=== PATIENT | female | born 1950 | race Caucasian/White ===

== ENCOUNTER → 2016-05-06 | Outpatient (REF) | payer BC | LOC: M SFHCLERA 09:51 | PROVIDERS: ATTEND Physician Assistant | DX: J02.9 Acute pharyngitis, unspecified (principal) ==

== ENCOUNTER 2019-04-24 14:58 | Inpatient (IN) | payer BC, MEDICARE ==
[~2019-04-24] VITALS: Ht 154.9 cm; Wt 56.4 kg
[2019-04-24] MEDS ORDERED: ATOR40TA75 PO (15:43)
[2019-04-24] MEDS ORDERED: ESTR62CR PV (15:43)
[2019-04-24] MEDS ORDERED: BUPR300T34 PO (15:43)
[2019-04-24] MEDS ORDERED: ATEN50TA2 PO (15:43)
[2019-04-24] MEDS ORDERED: NIFE30TA7 PO (15:43)
[2019-04-24] MEDS ORDERED: IPRATROPIUM 0.5MG/ALBUTEROL 2.5MG INH SOL UD 3ML (DUONEB)(J7620) NEB ONE (16:15)
[2019-04-24] MEDS ORDERED: NS 1,000 ML IV ONE (16:15)
[2019-04-24 16:30] LABS: HEMATOCRIT 40.9 % (36.0-47.0); HEMOGLOBIN 13.3 g/dl (12.0-15.5); MEAN CORPUSCULAR HEMOGLOBIN 28.7 pg (27.0-33.0); MEAN CORPUSCULAR HGB CONC 32.5 g/dl (32.0-36.5); MEAN CORPUSCULAR VOLUME 88.1 fl (80.0-96.0); PLATELET COUNT, AUTOMATED 332 10^3/uL (150-450); RED BLOOD COUNT 4.64 10^6/uL (4.00-5.40); WHITE BLOOD COUNT 16.3 10^3/uL (4.0-10.0)
[2019-04-24 16:42] LABS: BLOOD UREA NITROGEN 19 MG/DL (7-18); CALCIUM LEVEL 8.7 MG/DL (8.8-10.2); CARBON DIOXIDE LEVEL 26 MEQ/L (21-32); CHLORIDE LEVEL 98 MEQ/L (98-107); CREATININE FOR GFR 0.81 MG/DL (0.55-1.30); GLOMERULAR FILTRATION RATE > 60.0 (>45); GLUCOSE, FASTING 119 MG/DL (70-100); SODIUM LEVEL 135 MEQ/L (136-145)
[2019-04-24 16:52] LABS: INFLUENZA A AMPLIFICATION NEGATIVE (NEGATIVE); INFLUENZA B AMPLIFICATION POSITIVE (NEGATIVE)
[2019-04-24 16:58] LABS: ANISOCYTOSIS 1+; ATYPICAL LYMPH 1 % (0-5); LYMPHOCYTES 2 % (16-44); MONOCYTES 4 % (0-5); NEUTROPHILS 89 % (28-66)
[2019-04-24 17:04] LABS: HYPOCHROMASIA 1+
[2019-04-24 17:05] LABS: PLATELET ESTIMATE NORMAL (NORMAL)
[2019-04-24] MEDS ORDERED: methylPREDNISolone INJ 125 MG/2 ML VIAL (J2930) IV ONE (17:15)
[2019-04-24] MEDS ORDERED: cefTRIAXone SOD 2 GM in D5W MINI-BAG PLUS 50 ML IV ONE (17:15)
[2019-04-24] MEDS ORDERED: ACETAMINOPHEN TAB 650MG DOSE (2X325MG) PO ONE (18:00)
[2019-04-24] MEDS ORDERED: IBUP200T45 PO (18:21)
[2019-04-24] MEDS ORDERED: CICL1SHA2 TOP (18:21)
[2019-04-24] MEDS ORDERED: diphenhydrAMINE 25 MG CAP PO ONE (21:00)
[2019-04-25] MEDS ORDERED: POTASSIUM CHLORIDE 10 MEQ SR TABLET PO ONE (00:45)
[2019-04-25] MEDS ORDERED: IBUPROFEN 400 MG TAB PO PRN (00:45)
[2019-04-25] MEDS ORDERED: ACETAMINOPHEN TAB 650MG DOSE (2X325MG) PO PRN (00:45)
[2019-04-25] MEDS: atenoloL 25 MG TAB PO SCH ×2 (01:43→21:00)
[2019-04-25 02:00] VITALS: BP 109/58
--- NOTE | 2019-04-25 05:49 | HPEPDOC ---
[facility] Medical History & Physical Date of Admission Apr 25, 2019 Date of Service: Apr 25, 2019 Attending Physician: PANCHITO ROSADO MD History and Physical CHIEF COMPLAINT: Cough and Shortness of breath HISTORY OF PRESENT ILLNESS: Patient is a 68 year old female who presented to the [facility] ER with a complaint of a cough and some shortness of breath over the past 2weeks. She stated that 2 weeks ago she had felt sick and developed a cough. One week after her symptoms developed she went to an Urgent care where she was told she likely had a virus. She stated that since that time she has not felt much better. She denies any fevers or chills. She does admit to some nausea but denies any vomiting. She states that she has a decreased appetite. She does admit to sick contacts and states that her grandson was sick a few weeks ago with URI. Patient stated that she went urgent care a second time and was told to present to the ER. In the ER the patient was vitally stable and afebrile. She did have an elevation in her WBC. A chest x-ray revealed a possible infiltrate however this was not very impressive. The patient received steroids and a dose of Rocephin in the ED. A respiratory panel was ordered and the patient was positive for influenza type B. Hospitalist service was consulted and the patient was admitted. PAST MEDICAL HISTORY: 1. Hypertension 2. Hyperlipidemia PAST SURGICAL HISTORY: 1. Hysterectomy SOCIAL HISTORY: Patient lives at home with her . She is a former smoker and quit 30 years ago. She started at the age of 18 and smoked about 1/2 ppd. She denies any alcohol use. She denies any IV or illicit drug use. FAMILY HISTORY: She denies any family history of CAD ALLERGIES: Please see below. REVIEW OF SYSTEMS: CONSTITUTIONAL: Denies fevers, chills, night sweat. Denies unintentional weight loss. HEENT: Denies dysphagia. Denies pain on swallowing. Denies lymphadenopathy CARDIOVASCULAR: Denies chest pain, palpitations, or feelings of the heart racing RESPIRATORY: Admits to cough. Admits to some sputum production. Admits to some shortness of breath GASTROINTESTINAL: Denies abdominal pain. Denies diarrhea, constipation. Admits to some nausea. Denies vomiting GENITOURINARY: Denies increased frequency. Denies dysuria SKIN: Denies rashes or lesions NEUROLOGICAL: Denies changes in gait or balance PSYCHIATRIC: Denies depression or anxiety ENDOCRINE: Denies heat intolerance or cold intolerance HEMATOLOGIC/LYMPHATIC: Denies easy bruising or bleeding. Denies history of DVT or PE HOME MEDICATIONS: Please see below. PHYSICAL EXAMINATION: VITAL SIGNS: Temperature 97.8, pulse 77, respiratory rate 18, blood pressure 109/58, pulse oximetry 95% on 2L NC GENERAL APPEARANCE: Awake, alert, and oriented. Does not appear to be in any acute distress. Lying comfortably in bed. HEENT: Atraumatic normocephalic. Eyes are nonicteric. Trachea is midline. No lymphadenopathy CARDIOVASCULAR: Normal S1, S2. Regular rate and rhythm. No clicks rubs or murmu rs LUNGS: Clear vesicular breath sounds bilaterally with good respiratory effort. No wheezes, rhonchi, or rales ABDOMEN: Soft, nondistended. Nontender. No rebound tenderness or guarding. Normoactive bowel sounds throughout EXTREMITIES: No edema. Full and equal pulses in bilateral upper and lower extremities NEUROLOGICAL: No focal neurological deficits PSYCHIATRIC: Mood and affect appear appropriate LABORATORY DATA: See below. IMAGING: Clinical: Acute bronchitis. Technique: PA and lateral. Findings: Right basilar and right middle lobe atelectasis/early infiltrate along with subtle linear atelectasis at the left base. Remainder examination appears normal. Impression: Right basilar / middle lobe atelectasis and possible early pneumonia. Subtle linear left basilar atelectasis. Electronically Signed by Kb Santana MD 04/24/2019 02:37 P MICROBIOLOGY: Please see below. ASSESSMENT: Patient is a 68 year old female who presented with 2 weeks of shortness of breath and cough and found to have influenza type B . PLAN: 1. Influenza type B positive -Patient has a URI secondary to influenza. At this point in time there is no indication for antibiotics treatment. Will continue with supportive care. -Duonebs -Titration of O2 to 88-92% -Procalcitonin 2. HTN -Continue home medications including Procardia, Atenolol 3. Hyperlipidemia -Continue Atorvastatin 4. DVT prophylaxis -TEDs and Sequentials Vital Signs Vital Signs Date Time Temp Pulse Resp B/P (MAP) Pulse Ox O2 Delivery O2 Flow Rate FiO2 04/25/19 02:00 97.8 77 18 109/58 (75) 95 Nasal Cannula 2.0 04/24/19 16:14 95 Laboratory Data Labs 24H Laboratory Tests 2 04/24/19 16:06: Nucleated Red Blood Cells % (auto) 0.0, Neutrophils 89H, Band Neutrophils 4, Lymphocytes (Manual) 2L, Monocytes (Manual) 4, Atypical Lymphocytes 1, Hypochromasia 1+, Anisocytosis 1+, Platelet Estimate NORMAL, Anion Gap 11, Glomerular Filtration Rate > 60.0, Calcium Level 8.7L, Influenza Type A (RT-PCR) NEGATIVE, Influenza Type B (RT-PCR) POSITIVEH 04/24/19 16:12: Lactic Acid Level 1.7 CBC/BMP Laboratory Tests 04/24/19 16:06 Microbiology Microbiology 04/24/19 Respiratory Virus Panel (PCR) ([facility]) - Final, Complete 04/24/19 Blood Culture, Received Pending 04/24/19 Blood Culture, Received Pending Home Medications Scheduled Atenolol (Atenolol) 50 Mg Tablet, 25 MG PO QHS Atorvastatin Calcium (Atorvastatin Calcium) 40 Mg Tablet, 60 MG PO DAILY Bupropion HCl (Bupropion Xl) 300 Mg Tab.er.24h, 300 MG PO DAILY Ciclopirox (Ciclopirox) 120 Ml Shampoo, 1 APLCT TOP 3XW Nifedipine (Nifedipine ER) 30 Mg Tab.er.24, 30 MG PO DAILY Scheduled PRN Conjugated Estrogens (Premarin) 30 Gm Cream.appl, 1 GM PV DAILY PRN for VAGINAL DRYNESS Ibuprofen (Ibu-200) 200 Mg Tablet, 400 MG PO Q6H PRN for PAIN Allergies Coded Allergies: Sulfa (Sulfonamide Antibiotics) (Verified Adverse Reaction, Unknown, high blood pressure, 04/24/19) A-FIB/CHADSVASC A-FIB History Current/History of A-Fib/PAF?: No JOE GOOD DO Apr 25, 2019 05:49
[2019-04-25 06:00] VITALS: BP 120/64
[2019-04-25 06:57] LABS: HEMATOCRIT 36.8 % (36.0-47.0); HEMOGLOBIN 12.2 g/dl (12.0-15.5); MEAN CORPUSCULAR HGB CONC 33.2 g/dl (32.0-36.5); MEAN CORPUSCULAR VOLUME 87.6 fl (80.0-96.0); PLATELET COUNT, AUTOMATED 354 10^3/uL (150-450); WHITE BLOOD COUNT 14.5 10^3/uL (4.0-10.0)
[2019-04-25 07:19] LABS: BLOOD UREA NITROGEN 14 MG/DL (7-18); CALCIUM LEVEL 8.9 MG/DL (8.8-10.2); CARBON DIOXIDE LEVEL 27 MEQ/L (21-32); CHLORIDE LEVEL 105 MEQ/L (98-107); CREATININE FOR GFR 0.85 MG/DL (0.55-1.30); GLOMERULAR FILTRATION RATE > 60.0 (>45); GLUCOSE, FASTING 217 MG/DL (70-100); POTASSIUM SERUM 3.6 MEQ/L (3.5-5.1); SODIUM LEVEL 139 MEQ/L (136-145)
[2019-04-25] MEDS: NIFEdipine 30 MG XL TAB PO SCH (09:00)
[2019-04-25] MEDS: ATORVASTATIN 20 MG TAB PO SCH (09:39)
[2019-04-25] MEDS: cefTRIAXone SOD 1 GM in D5W MINI-BAG PLUS 50 ML IV SCH (09:40)
[2019-04-25] MEDS: buPROPion **XL** TABLET 150MG (WELLBUTRIN XL) PO SCH (09:40)
--- NOTE | 2019-04-25 11:03 | IPNPDOC ---
Subjective Date Seen The patient was seen on 04/25/19. Subjective Chief Complaint/HPI Patient is feeling much better, asking when she can be discharged home General: Denies: ROS Unobtainable, Chills, Night Sweats, Fatigue, Malaise, Normal Appetite, Other Symptoms Constitutional: Denies: Chills, Fever, Malaise, Night Sweats, Weakness, Fatigue, Weight Loss, Lethargy, Other Eyes: Denies: Pain, Vision change, Conjunctivae inflammation, Eyelid inflammation, Redness, Other Pulmonary: Denies: Dyspnea, Cough, Pleuritic Chest Pain, Other Symptoms Cardiovascular: Denies: Chest Pain, Palpitations, Orthopnea, Paroxysmal Noc. Dyspnea, Edema, Lt Headedness, Other Symptoms Gastrointestinal: Denies: Nausea, Vomiting, Abdominal Pain, Diarrhea, Constipation, Melena, Hematochezia, Other Symptoms Musculoskeletal: Denies: Neck Pain, Back Pain, Shoulder Pain, Arm Pain, Hand Pain, Leg Pain, Foot Pain, Joint Pain, Muscle Pain, Spasms, Other Symptoms Neurological: Denies: Weakness, Numbness, Incoordination, Change in speech, Confusion, Seizures, Other Symptoms Objective Physical Examination General Exam: Positive: Alert, Cooperative Eye Exam: Positive: PERRLA ENT Exam: Positive: Atraumatic, Mucous membr. moist/pink Neck Exam: Positive: Supple Chest Exam: Positive: Clear to auscultation, Normal air movement Heart Exam: Positive: Rate Normal, Normal S1, Normal S2 Abdomen Exam: Positive: Normal bowel sounds, Soft, Tenderness Extremity Exam: Positive: Normal pulses Neuro Exam: Positive: Strength at 5/5 X4 ext, Sensation Intact, Cranial Nerves 3-12 NL Assessment /Plan Problems (1) Pneumonia Status: Acute Problem Text: Community-acquired pneumonia . Patient's WBC count has decreased to 10.8 . She is afebrile and symptomatically feels better Will continue IV Rocephin and Zithromax Repeat labs in a.m. if continues to improve with the current therapy. She possibly will be discharged home in the morning (2) Flu Problem Text: . Influenza B positive Symptomatic care as patient has symptoms since last 2 weeks (3) HTN (hypertension) Status: Chronic Problem Text: Under control. Continue present meds (4) Hyperlipemia Status: Chronic Problem Text: Continue home meds Plan/VTE VTE Prophylaxis Ordered?: Yes VS, I&O, 24H, Harjinder Vital Signs/I&O Vital Signs Date Time Temp Pulse Resp B/P (MAP) Pulse Ox O2 Delivery O2 Flow Rate FiO2 04/25/19 06:00 98.1 72 16 120/64 (82) 95 Nasal Cannula 2.0 04/24/19 16:14 95 I&O- Last 24 Hours up to 6 AM 04/25/19 05:59 Intake Total 1050 ml Balance 1050 ml Laboratory Data 24H LABS Laboratory Tests 2 04/24/19 16:06: Nucleated Red Blood Cells % (auto) 0.0, Neutrophils 89H, Band Neutrophils 4, Lymphocytes (Manual) 2L, Monocytes (Manual) 4, Atypical Lymphocytes 1, Hypochromasia 1+, Anisocytosis 1+, Platelet Estimate NORMAL, Anion Gap 11, Glomerular Filtration Rate > 60.0, Calcium Level 8.7L, Influenza Type A (RT-PCR) NEGATIVE, Influenza Type B (RT-PCR) POSITIVEH 04/24/19 16:12: Lactic Acid Level 1.7 04/25/19 06:12: Nucleated Red Blood Cells % (auto) 0.0, Anion Gap 7L, Glomerular Filtration Rate > 60.0, Calcium Level 8.9 CBC/BMP Laboratory Tests 04/24/19 16:06 04/25/19 06:12 Microbiology Microbiology 04/24/19 Respiratory Virus Panel (PCR) ([facility]) - Final, Complete 04/24/19 Blood Culture, Received Pending 04/24/19 Blood Culture, Received Pending ARTIE PARSON MD Apr 25, 2019 11:03
[2019-04-25] MEDS: AZITHROMYCIN INJ 500 MG, VIAL MATE ADAPTER 1 EACH in D5W 250 ML IV SCH (11:17)
[2019-04-25 14:00] VITALS: BP 105/58
[2019-04-25 22:00] VITALS: BP 100/62
[2019-04-26 06:00] VITALS: BP 100/60
[2019-04-26 06:02] LABS: BASO # 0.1 10^3/uL (0.0-0.2); BASO % 0.3 % (0.0-1.0); HEMATOCRIT 37.2 % (36.0-47.0); HEMOGLOBIN 12.2 g/dl (12.0-15.5); LYMPH # 1.4 10^3/uL (1.5-5.0); LYMPH % 7.5 % (24.0-44.0); MEAN CORPUSCULAR HEMOGLOBIN 29.2 pg (27.0-33.0); MEAN CORPUSCULAR HGB CONC 32.8 g/dl (32.0-36.5); MONO # 1.1 10^3/uL (0.0-0.8); MONO % 5.8 % (0.0-5.0); NEUTROPHILS % 83.6 % (36.0-66.0); PLATELET COUNT, AUTOMATED 431 10^3/uL (150-450); RED BLOOD COUNT 4.18 10^6/uL (4.00-5.40); WHITE BLOOD COUNT 19.1 10^3/uL (4.0-10.0)
[2019-04-26 06:28] LABS: ALBUMIN 2.4 GM/DL (3.2-5.2); ALT/SGPT 20 U/L (12-78); BILIRUBIN,TOTAL 0.7 MG/DL (0.2-1.0); BLOOD UREA NITROGEN 19 MG/DL (7-18); CALCIUM LEVEL 8.7 MG/DL (8.8-10.2); CARBON DIOXIDE LEVEL 29 MEQ/L (21-32); CHLORIDE LEVEL 105 MEQ/L (98-107); CREATININE FOR GFR 0.94 MG/DL (0.55-1.30); GLOMERULAR FILTRATION RATE > 60.0 (>45); GLUCOSE, FASTING 113 MG/DL (70-100); POTASSIUM SERUM 3.3 MEQ/L (3.5-5.1); SODIUM LEVEL 139 MEQ/L (136-145); TOTAL PROTEIN 6.4 GM/DL (6.4-8.2)
[2019-04-26] MEDS ORDERED: POTASSIUM CHLORIDE 10 MEQ SR TABLET PO ONE (08:00)
--- NOTE | 2019-04-26 08:21 | REP ---
Clinical: Chest pain. Dyspnea. Pneumonia. Technique: PA and lateral. Comparison: 04/24/2019. Findings: Mediastinum and cardiac silhouette are normal. Ill-defined bibasilar opacities consistent with atelectasis/pneumonia and small pleural reactions. No significant effusion. No pneumothorax. Skeletal structures stable. Impression: Bibasilar opacities suggesting atelectasis/pneumonia. Electronically Signed by Kb Santana MD 04/26/2019 08:12 A
[2019-04-26] MEDS: buPROPion **XL** TABLET 150MG (WELLBUTRIN XL) PO SCH (09:11)
[2019-04-26] MEDS: NIFEdipine 30 MG XL TAB PO SCH (09:11)
[2019-04-26] MEDS: ATORVASTATIN 20 MG TAB PO SCH (09:11)
[2019-04-26] MEDS: cefTRIAXone SOD 1 GM in D5W MINI-BAG PLUS 50 ML IV SCH (09:12)
--- NOTE | 2019-04-26 09:35 | IPNPDOC ---
Subjective Date Seen The patient was seen on 04/26/19. Subjective Chief Complaint/HPI Patient is comfortable offers no new complaints, has been afebrile, asymptomatic. WBC count is still elevated General: Denies: ROS Unobtainable, Chills, Night Sweats, Fatigue, Malaise, Normal Appetite, Other Symptoms Eyes: Denies: Pain, Vision change, Conjunctivae inflammation, Eyelid inflammation, Redness, Other Pulmonary: Denies: Dyspnea, Cough, Pleuritic Chest Pain, Other Symptoms Cardiovascular: Denies: Chest Pain, Palpitations, Orthopnea, Paroxysmal Noc. Dyspnea, Edema, Lt Headedness, Other Symptoms Genitourinary: Denies: Dysuria, Frequency, Incontinence, Hematuria, Retention, Other Symptoms Hematologic: Denies: Bruising, Bleeding Excessively, Petecchia, Purpura, Enlarged Lymph Nodes, Other Hematologic Musculoskeletal: Denies: Neck Pain, Back Pain, Shoulder Pain, Arm Pain, Hand Pain, Leg Pain, Foot Pain, Joint Pain, Muscle Pain, Spasms, Other Symptoms Neurological: Denies: Weakness, Numbness, Incoordination, Change in speech, Confusion, Seizures, Other Symptoms Objective Physical Examination General Exam: Positive: Alert, Cooperative Eye Exam: Positive: PERRLA ENT Exam: Positive: Atraumatic, Mucous membr. moist/pink Neck Exam: Positive: Supple Chest Exam: Positive: Clear to auscultation, Normal air movement Heart Exam: Positive: Rate Normal, Normal S1, Normal S2 Abdomen Exam: Positive: Normal bowel sounds, Soft, Tenderness Extremity Exam: Positive: Normal pulses Neuro Exam: Positive: Strength at 5/5 X4 ext, Sensation Intact, Cranial Nerves 3-12 NL Assessment /Plan Problems (1) Pneumonia Status: Acute Problem Text: Community-acquired pneumonia . Patient's WBC count is 19.1 Is afebrile and symptomatically feels better Sputum culture shows gram-positive sitter cocci in clusters Will continue IV Rocephin and Zithromax Repeat labs in a.m. if continues to improve with the current therapy. She possibly will be discharged home in the morning (2) Flu Problem Text: . Influenza B positive Symptomatic care as patient has symptoms since last 2 weeks (3) HTN (hypertension) Status: Chronic Problem Text: Under control. Continue present meds (4) Hyperlipemia Status: Chronic Problem Text: Continue home meds Plan/VTE VTE Prophylaxis Ordered?: Yes VS, I&O, 24H, Fishbone Vital Signs/I&O Vital Signs Date Time Temp Pulse Resp B/P (MAP) Pulse Ox O2 Delivery O2 Flow Rate FiO2 04/26/19 09:11 120/64 04/26/19 06:00 99.1 72 18 93 Nasal Cannula 1.0 04/24/19 16:14 95 I&O- Last 24 Hours up to 6 AM 04/26/19 06:00 Intake Total 1975 ml Output Total 1650 ml Balance 325 ml Laboratory Data 24H LABS Laboratory Tests 2 04/25/19 11:44: Magnesium Level 2.3 04/26/19 05:50: Immature Granulocyte % (Auto) 2.8, Neutrophils (%) (Auto) 83.6H, Lymphocytes (%) (Auto) 7.5L, Monocytes (%) (Auto) 5.8H, Eosinophils (%) (Auto) 0.0, Basophils (%) (Auto) 0.3, Neutrophils # (Auto) 16.0H, Lymphocytes # (Auto) 1.4L, Monocytes # (Auto) 1.1H, Eosinophils # (Auto) 0.0, Basophils # (Auto) 0.1, Nucleated Red Blood Cells % (auto) 0.0, Anion Gap 5L, Glomerular Filtration Rate > 60.0, Calcium Level 8.7L, Total Bilirubin 0.7, Aspartate Amino Transf (AST/SGOT) 19, Alanine Aminotransferase (ALT/SGPT) 20, Alkaline Phosphatase 88, Total Protein 6.4, Albumin 2.4L, Albumin/Globulin Ratio 0.60L CBC/BMP Laboratory Tests 04/26/19 05:50 Microbiology Microbiology 04/25/19 Gram Stain - Final, Resulted 04/25/19 Sputum Culture, Resulted Pending 04/24/19 Respiratory Virus Panel (PCR) ([facility]) - Final, Complete 04/24/19 Blood Culture - Preliminary, Resulted No growth after 24 hours . All specim... 04/24/19 Blood Culture - Preliminary, Resulted No growth after 24 hours . All specim... ARTIE PARSON MD Apr 26, 2019 09:35
[2019-04-26] MEDS: AZITHROMYCIN INJ 500 MG, VIAL MATE ADAPTER 1 EACH in D5W 250 ML IV SCH (10:18)
[2019-04-26] MEDS: IPRATROPIUM 0.5MG/ALBUTEROL 2.5MG INH SOL UD 3ML (DUONEB)(J7620) NEB PRN ×3 (12:27→20:24)
[2019-04-26 14:00] VITALS: BP 105/56
[2019-04-26] MEDS ORDERED: diphenhydrAMINE INJ 50MG/ML VIAL (J1200) IV PRN (16:15)
[2019-04-26 20:00] VITALS: BP 110/64
[2019-04-26] MEDS: atenoloL 25 MG TAB PO SCH (22:03)
[2019-04-26] MEDS: diphenhydrAMINE 25 MG CAP PO PRN (22:03)
[2019-04-27 06:00] VITALS: BP 122/72
[2019-04-27 06:06] LABS: BASO # 0.1 10^3/uL (0.0-0.2); BASO % 0.7 % (0.0-1.0); EOS # 0.1 10^3/uL (0.0-0.5); EOS % 0.6 % (0.0-3.0); HEMATOCRIT 38.1 % (36.0-47.0); HEMOGLOBIN 12.2 g/dl (12.0-15.5); LYMPH # 1.8 10^3/uL (1.5-5.0); LYMPH % 15.9 % (24.0-44.0); MEAN CORPUSCULAR HEMOGLOBIN 28.6 pg (27.0-33.0); MEAN CORPUSCULAR VOLUME 89.2 fl (80.0-96.0); MONO % 8.6 % (0.0-5.0); NEUTROPHILS # 7.9 10^3/uL (1.5-8.5); NEUTROPHILS % 70.4 % (36.0-66.0); PLATELET COUNT, AUTOMATED 431 10^3/uL (150-450); RED BLOOD COUNT 4.27 10^6/uL (4.00-5.40); WHITE BLOOD COUNT 11.2 10^3/uL (4.0-10.0)
[2019-04-27 06:38] LABS: ALBUMIN 2.3 GM/DL (3.2-5.2); ALT/SGPT 20 U/L (12-78); BILIRUBIN,TOTAL 0.5 MG/DL (0.2-1.0); BLOOD UREA NITROGEN 16 MG/DL (7-18); CALCIUM LEVEL 8.4 MG/DL (8.8-10.2); CARBON DIOXIDE LEVEL 29 MEQ/L (21-32); CHLORIDE LEVEL 107 MEQ/L (98-107); CREATININE FOR GFR 0.79 MG/DL (0.55-1.30); GLOMERULAR FILTRATION RATE > 60.0 (>45); GLUCOSE, FASTING 83 MG/DL (70-100); POTASSIUM SERUM 3.7 MEQ/L (3.5-5.1); SODIUM LEVEL 141 MEQ/L (136-145); TOTAL PROTEIN 6.2 GM/DL (6.4-8.2)
[2019-04-27] MEDS: buPROPion **XL** TABLET 150MG (WELLBUTRIN XL) PO SCH (09:19)
[2019-04-27] MEDS: AZITHROMYCIN INJ 500 MG, VIAL MATE ADAPTER 1 EACH in D5W 250 ML IV SCH (09:19)
[2019-04-27] MEDS: cefTRIAXone SOD 1 GM in D5W MINI-BAG PLUS 50 ML IV SCH (09:19)
[2019-04-27] MEDS: ATORVASTATIN 20 MG TAB PO SCH (09:20)
[2019-04-27] MEDS: NIFEdipine 30 MG XL TAB PO SCH (09:20)
--- NOTE | 2019-04-27 11:27 | IPNPDOC ---
Subjective Date Seen The patient was seen on 04/27/19. Subjective Chief Complaint/HPI Patient is comfortable in no distress. She did had a fever last night of 99.4. Has mild cough, no shortness of breath General: Denies: ROS Unobtainable, Chills, Night Sweats, Fatigue, Malaise, Normal Appetite, Other Symptoms Constitutional: Denies: Chills, Fever, Malaise, Night Sweats, Weakness, Fat igue, Weight Loss, Lethargy, Other Pulmonary: Denies: Dyspnea, Cough, Pleuritic Chest Pain, Other Symptoms Cardiovascular: Denies: Chest Pain, Palpitations, Orthopnea, Paroxysmal Noc. Dyspnea, Edema, Lt Headedness, Other Symptoms Gastrointestinal: Denies: Nausea, Vomiting, Abdominal Pain, Diarrhea, Constipation, Melena, Hematochezia, Other Symptoms Musculoskeletal: Denies: Neck Pain, Back Pain, Shoulder Pain, Arm Pain, Hand Pain, Leg Pain, Foot Pain, Joint Pain, Muscle Pain, Spasms, Other Symptoms Neurological: Denies: Weakness, Numbness, Incoordination, Change in speech, Confusion, Seizures, Other Symptoms Objective Physical Examination General Exam: Positive: Alert, Cooperative Chest Exam: Positive: Clear to auscultation, Normal air movement Heart Exam: Positive: Rate Normal, Normal S1, Normal S2 Abdomen Exam: Positive: Normal bowel sounds, Soft, Tenderness Extremity Exam: Positive: Normal pulses Neuro Exam: Positive: Strength at 5/5 X4 ext, Sensation Intact, Cranial Nerves 3-12 NL Assessment /Plan Problems (1) Pneumonia Status: Acute Problem Text: Community-acquired pneumonia . Patient's WBC count is 11.2 today Patient was febrile last night. MAXIMUM TEMPERATURE was 99.4 On the preliminary report Sputum culture shows gram-positive cocci in clusters, but final report is pending Sputum while cultures are negative Will continue IV Rocephin and change Zithromax to by mouth If patient remains afebrile and she is weaned off oxygen (. Currently she is already on 1 L nasal cannula) as she does not use oxygen at home then she can be discharged in 24 hours (2) Flu Problem Text: . Influenza B positive Symptomatic care as patient has symptoms since last 2 weeks (3) HTN (hypertension) Status: Chronic Problem Text: Under control. Continue present meds (4) Hyperlipemia Status: Chronic Problem Text: Continue home meds Plan/VTE VTE Prophylaxis Ordered?: Yes VS, I&O, 24H, Fishbone Vital Signs/I&O Vital Signs Date Time Temp Pulse Resp B/P (MAP) Pulse Ox O2 Delivery O2 Flow Rate FiO2 04/27/19 06:00 99.4 84 18 122/72 (89) 91 Nasal Cannula 1.0 04/24/19 16:14 95 I&O- Last 24 Hours up to 6 AM 04/27/19 05:59 Intake Total 2100 ml Output Total 0 ml Balance 2100 ml Laboratory Data 24H LABS Laboratory Tests 2 04/27/19 05:43: Immature Granulocyte % (Auto) 3.8H, Neutrophils (%) (Auto) 70.4H, Lymphocytes (%) (Auto) 15.9L, Monocytes (%) (Auto) 8.6H, Eosinophils (%) (Auto) 0.6, Basophils (%) (Auto) 0.7, Neutrophils # (Auto) 7.9, Lymphocytes # (Auto) 1.8, Monocytes # (Auto) 1.0H, Eosinophils # (Auto) 0.1, Basophils # (Auto) 0.1, Nucleated Red Blood Cells % (auto) 0.0, Anion Gap 5L, Glomerular Filtration Rate > 60.0, Calcium Level 8.4L, Magnesium Level 2.0, Total Bilirubin 0.5, Aspartate Amino Transf (AST/SGOT) 15, Alanine Aminotransferase (ALT/SGPT) 20, Alkaline Phosphatase 90, Total Protein 6.2L, Albumin 2.3L, Albumin/Globulin Ratio 0.59L CBC/BMP Laboratory Tests 04/27/19 05:43 Microbiology Microbiology 04/25/19 Gram Stain - Final, Resulted 04/25/19 Sputum Culture, Resulted Pending 04/24/19 Respiratory Virus Panel (PCR) ([facility]) - Final, Complete 04/24/19 Blood Culture - Preliminary, Resulted No Growth after 48 hours. All Specime... 04/24/19 Blood Culture - Preliminary, Resulted No Growth after 48 hours. All Specime... ARTIE PARSON MD Apr 27, 2019 11:27
[2019-04-27 14:00] VITALS: BP 114/70
[2019-04-27] MEDS: IPRATROPIUM 0.5MG/ALBUTEROL 2.5MG INH SOL UD 3ML (DUONEB)(J7620) NEB PRN (20:07)
[2019-04-27] MEDS: atenoloL 25 MG TAB PO SCH (20:11)
[2019-04-27 22:00] VITALS: BP 115/74
[2019-04-27] MEDS: diphenhydrAMINE 25 MG CAP PO PRN (22:17)
[2019-04-28 06:00] VITALS: BP 110/57
[2019-04-28 06:53] LABS: BASO # 0.1 10^3/uL (0.0-0.2); BASO % 0.5 % (0.0-1.0); EOS # 0.2 10^3/uL (0.0-0.5); EOS % 1.5 % (0.0-3.0); HEMATOCRIT 40.1 % (36.0-47.0); HEMOGLOBIN 12.8 g/dl (12.0-15.5); LYMPH # 1.6 10^3/uL (1.5-5.0); LYMPH % 15.9 % (24.0-44.0); MEAN CORPUSCULAR HEMOGLOBIN 28.5 pg (27.0-33.0); MEAN CORPUSCULAR HGB CONC 31.9 g/dl (32.0-36.5); MEAN CORPUSCULAR VOLUME 89.3 fl (80.0-96.0); MONO # 0.7 10^3/uL (0.0-0.8); MONO % 6.6 % (0.0-5.0); NEUTROPHILS # 7.1 10^3/uL (1.5-8.5); PLATELET COUNT, AUTOMATED 436 10^3/uL (150-450); RED BLOOD COUNT 4.49 10^6/uL (4.00-5.40); WHITE BLOOD COUNT 9.8 10^3/uL (4.0-10.0)
[2019-04-28 07:24] LABS: BLOOD UREA NITROGEN 12 MG/DL (7-18); CALCIUM LEVEL 8.6 MG/DL (8.8-10.2); CARBON DIOXIDE LEVEL 31 MEQ/L (21-32); CHLORIDE LEVEL 103 MEQ/L (98-107); CREATININE FOR GFR 0.73 MG/DL (0.55-1.30); GLOMERULAR FILTRATION RATE > 60.0 (>45); GLUCOSE, FASTING 75 MG/DL (70-100); POTASSIUM SERUM 3.4 MEQ/L (3.5-5.1); SODIUM LEVEL 140 MEQ/L (136-145)
[2019-04-28 07:25] LABS: ALBUMIN 2.4 GM/DL (3.2-5.2); ALT/SGPT 19 U/L (12-78); BILIRUBIN,TOTAL 0.4 MG/DL (0.2-1.0); TOTAL PROTEIN 6.2 GM/DL (6.4-8.2)
[2019-04-28] MEDS: ATORVASTATIN 20 MG TAB PO SCH (08:37)
[2019-04-28] MEDS: POTASSIUM CHLORIDE 10 MEQ SR TABLET PO SCH ×2 (08:37→13:36)
[2019-04-28] MEDS: cefTRIAXone SOD 1 GM in D5W MINI-BAG PLUS 50 ML IV SCH (08:38)
[2019-04-28] MEDS: buPROPion **XL** TABLET 150MG (WELLBUTRIN XL) PO SCH (08:38)
[2019-04-28] MEDS: NIFEdipine 30 MG XL TAB PO SCH (08:38)
[2019-04-28] MEDS: AZITHROMYCIN INJ 500 MG, VIAL MATE ADAPTER 1 EACH in D5W 250 ML IV SCH (09:35)
[2019-04-28 14:00] VITALS: BP 118/70
[2019-04-28 22:00] VITALS: BP 118/72
[2019-04-28] MEDS: diphenhydrAMINE 25 MG CAP PO PRN (22:11)
[2019-04-28] MEDS: atenoloL 25 MG TAB PO SCH (22:11)
--- NOTE | 2019-04-28 23:28 | IPNPDOC ---
Date Seen The patient was seen on 04/28/19. Progress Note HISTORY OF PRESENT ILLNESS: 68 y.o female w/ PMH of HTN & HLD was admitted for Flu w/ possible superimposed bacterial pneumonia. She has done well with supportive care and IV antibiotics but continue to require supplemental oxygen w/ ambulation. She has been improving clinically and O2 saturation is normal at rest; she continues to have a non-productive cough. She has no other complaints at this time; she denies any chest pain, N/V, abdominal pain or diarrhea. 10 point review of system is negative except for above. PHYSICAL EXAMINATION: VITAL SIGNS: Please see below. GENERAL: No distress HEENT: Normocephalic, atraumatic, dry mucous membranes NECK: Supple CARDIOVASCULAR EXAMINATION: S1, S2, no murmurs RESPIRATORY EXAMINATION: Basilar rhonchi, no wheezing ABDOMINAL EXAMINATION: Soft, no tenderness, nondistended, positive bowel sounds EXTREMITIES: Range of motion intact SKIN: No rash NEUROLOGICAL EXAMINATION: no focal deficits PSYCHIATRIC EXAMINATION: Calm and cooperative LABORATORY DATA: See below. MICROBIOLOGY: Please see below. ASSESSMENT: 68 y.o female admitted for Flu w/ possible superimposed bacterial pneumonia. PLAN: 1. Pneumonia. Flu A positive, CXR w/ opacity concerning for superimposed bacterial infection, continue Zithromax/Ceftriaxone. Attempted to discharge patient but requires O2 w/ ambulation, will attempt to provide temporary home oxygen as she recovers from her current infection. 2. HTN - continue Procardia & Atenolol 3. HLD - continue Atorvastatin DVT prophylaxis: Heparin subcutaneous GI prophylaxis: Not needed VS, I&O, 24H, Fishbone Vital Signs/I&O Vital Signs Date Time Temp Pulse Resp B/P (MAP) Pulse Ox O2 Delivery O2 Flow Rate FiO2 04/28/19 22:11 84 124/71 04/28/19 14:00 99.3 17 91 Nasal Cannula 2.0 04/24/19 16:14 95 I&O- Last 24 Hours up to 6 AM 04/28/19 06:00 Intake Total 850 ml Output Total 1550 ml Balance -700 ml Laboratory Data 24H LABS Laboratory Tests 2 04/28/19 05:53: Immature Granulocyte % (Auto) 3.5H, Neutrophils (%) (Auto) 72.0H, Lymphocytes (%) (Auto) 15.9L, Monocytes (%) (Auto) 6.6H, Eosinophils (%) (Auto) 1.5, Basophils (%) (Auto) 0.5, Neutrophils # (Auto) 7.1, Lymphocytes # (Auto) 1.6, Monocytes # (Auto) 0.7, Eosinophils # (Auto) 0.2, Basophils # (Auto) 0.1, Nucleated Red Blood Cells % (auto) 0.0, Anion Gap 6L, Glomerular Filtration Rate > 60.0, Calcium Level 8.6L, Total Bilirubin 0.4, Aspartate Amino Transf (AST/SGOT) 15, Alanine Aminotransferase (ALT/SGPT) 19, Alkaline Phosphatase 88, Total Protein 6.2L, Albumin 2.4L, Albumin/Globulin Ratio 0.63L CBC/BMP Laboratory Tests 04/28/19 05:53 Microbiology Microbiology 04/25/19 Gram Stain - Final, Complete 04/25/19 Sputum Culture - Final, Complete 04/24/19 Respiratory Virus Panel (PCR) ([facility]) - Final, Complete 04/24/19 Blood Culture - Preliminary, Resulted No Growth after 72 hours. All specime... 04/24/19 Blood Culture - Preliminary, Resulted No Growth after 72 hours. All specime... PANCHITO ROSADO MD Apr 28, 2019 23:28
[2019-04-29 06:00] VITALS: BP 120/64
[2019-04-29] MEDS ORDERED: HEPARIN SOD (PORCINE) 5000 UNITS/ML VIAL SQ SCH (06:00)
[2019-04-29 08:37] VITALS: BP 122/60
[2019-04-29] MEDS: NIFEdipine 30 MG XL TAB PO SCH (08:37)
[2019-04-29] MEDS: cefTRIAXone SOD 1 GM in D5W MINI-BAG PLUS 50 ML IV SCH (08:38)
[2019-04-29] MEDS: ATORVASTATIN 20 MG TAB PO SCH (08:38)
[2019-04-29] MEDS: buPROPion **XL** TABLET 150MG (WELLBUTRIN XL) PO SCH (08:44)
[2019-04-29] MEDS: AZITHROMYCIN INJ 500 MG, VIAL MATE ADAPTER 1 EACH in D5W 250 ML IV SCH (09:38)
--- NOTE | 2019-04-29 20:52 | DS.PDOC ---
Discharge Summary General Date of Admission Apr 24, 2019 at 23:36 Date of Discharge 04/29/19 Attending Physician: PANCHITO ROSADO MD Discharge Summary PROCEDURES PERFORMED DURING STAY: None. ADMITTING DIAGNOSES: 1. Flu with possible superimposed bacterial pneumonia. DISCHARGE DIAGNOSES: 1. Flu with possible superimposed bacterial pneumonia. COMPLICATIONS/CHIEF COMPLAINT: FLU. HISTORY OF PRESENT ILLNESS: 68-year-old female was admitted with influenza A and imaging was concerning for possible superimposed bacterial pneumonia. She was outside the window for Tamiflu, treated with azithromycin, ceftriaxone for superimposed bacterial pneumonia. She had significant clinical improvement throughout hospitalization, initially requiring supplemental oxygen with ambulation to maintain adequate oxygen saturation. Patient was reevaluated today and ambulated around the unit on room air without significant oxygen desaturation. Patient is clinically and he will be stable for discharge and outpatient follow-up. Patient does not require any further antibiotics. HOSPITAL COURSE: As above. DISCHARGE MEDICATIONS: Please see below. ALLERGIES: Please see below. PHYSICAL EXAMINATION: VITAL SIGNS: Please see below. GENERAL: No distress HEENT: Normocephalic, atraumatic, dry mucous membranes NECK: Supple CARDIOVASCULAR EXAMINATION: S1, S2, no murmurs RESPIRATORY EXAMINATION: Basilar rhonchi, no wheezing ABDOMINAL EXAMINATION: Soft, no tenderness, nondistended, positive bowel sounds EXTREMITIES: Range of motion intact SKIN: No rash NEUROLOGICAL EXAMINATION: no focal deficits PSYCHIATRIC EXAMINATION: Calm and cooperative LABORATORY DATA: Please see below. IMAGING: Chest x-ray concerning for right lower lobe pneumonia PROGNOSIS: Fair ACTIVITY: As tolerated. DIET: Cardiac DISCHARGE PLAN: Follow up with PCP 1-2 weeks DISPOSITION: 01 Home, Self-Care. DISCHARGE INSTRUCTIONS: 1. As above. DISCHARGE CONDITION: Stable. TIME SPENT ON DISCHARGE: Greater than 33 minutes. Vital Signs/I&Os Vital Signs Date Time Temp Pulse Resp B/P (MAP) Pulse Ox O2 Delivery O2 Flow Rate FiO2 04/29/19 08:37 122/60 04/29/19 06:00 98.4 94 17 93 Room Air 04/28/19 14:00 2.0 04/24/19 16:14 95 I&O- Last 24 Hours up to 6 AM 04/29/19 06:00 Intake Total 2925 ml Output Total 900 ml Balance 2025 ml Microbiology Microbiology 04/25/19 Gram Stain - Final, Complete 04/25/19 Sputum Culture - Final, Complete 04/24/19 Respiratory Virus Panel (PCR) ([facility]) - Final, Complete 04/24/19 Blood Culture - Final, Complete NO GROWTH AFTER 5 DAYS 04/24/19 Blood Culture - Final, Complete NO GROWTH AFTER 5 DAYS Discharge Medications Scheduled Atenolol (Atenolol) 50 Mg Tablet, 25 MG PO QHS, (Reported) Atorvastatin Calcium (Atorvastatin Calcium) 40 Mg Tablet, 60 MG PO DAILY, (Reported) Bupropion HCl (Bupropion Xl) 300 Mg Tab.er.24h, 300 MG PO DAILY, (Reported) Ciclopirox (Ciclopirox) 120 Ml Shampoo, 1 APLCT TOP 3XW, (Reported) Nifedipine (Nifedipine ER) 30 Mg Tab.er.24, 30 MG PO DAILY, (Reported) Scheduled PRN Conjugated Estrogens (Premarin) 30 Gm Cream.appl, 1 GM PV DAILY PRN for VAGINAL DRYNESS, (Reported) Ibuprofen (Ibu-200) 200 Mg Tablet, 400 MG PO Q6H PRN for PAIN, (Reported) Allergies Coded Allergies: Sulfa (Sulfonamide Antibiotics) (Verified Adverse Reaction, Unknown, high blood pressure, 04/24/19) PANCHITO ROSADO MD Apr 29, 2019 20:52
== END 2019-04-29 12:47 | disposition home or self-care (01) | DRG 139 ==
LOC: M ED 14:58 → M ED INP 23:36 → M MSPAV 04-25 01:25
PROVIDERS: ADMIT Internal Medicine; ATTEND Internal Medicine
DX: J10.08 Influenza due to other identified influenza virus with other specified pneumonia (principal); I10 Essential (primary) hypertension; E78.5 Hyperlipidemia, unspecified; Z90.79 Acquired absence of other genital organ(s); J06.9 Acute upper respiratory infection, unspecified; Z79.899 Other long term (current) drug therapy; Z88.2 Allergy status to sulfonamides; J15.9 Unspecified bacterial pneumonia

== ENCOUNTER → 2019-04-24 | Outpatient (CLI) | payer BC ==
[~2019-04-24] MED LIST: ATEN50TA2 PO; ATOR40TA75 PO; BUPR300T34 PO; CICL1SHA2 TOP; ESTR62CR PV; IBUP200T45 PO; NIFE30TA7 PO
--- NOTE | 2019-04-24 14:45 | REP ---
Clinical: Acute bronchitis. Technique: PA and lateral. Findings: Right basilar and right middle lobe atelectasis/early infiltrate along with subtle linear atelectasis at the left base. Remainder examination appears normal. Impression: Right basilar / middle lobe atelectasis and possible early pneumonia. Subtle linear left basilar atelectasis. Electronically Signed by Kb Santana MD 04/24/2019 02:37 P
[2019-04-24 16:48] LABS: HEMOGLOBIN 13.5 g/dl (12.0-15.5); MEAN CORPUSCULAR HEMOGLOBIN 28.8 pg (27.0-33.0); MEAN CORPUSCULAR HGB CONC 32.1 g/dl (32.0-36.5); MEAN CORPUSCULAR VOLUME 89.6 fl (80.0-96.0); PLATELET COUNT, AUTOMATED 366 10^3/uL (150-450); RED BLOOD COUNT 4.69 10^6/uL (4.00-5.40); WHITE BLOOD COUNT 17.7 10^3/uL (4.0-10.0)
[2019-04-24 16:56] LABS: BLOOD UREA NITROGEN 19 MG/DL (7-18); CALCIUM LEVEL 8.7 MG/DL (8.8-10.2); CARBON DIOXIDE LEVEL 26 MEQ/L (21-32); CHLORIDE LEVEL 97 MEQ/L (98-107); CREATININE FOR GFR 0.92 MG/DL (0.55-1.30); GLOMERULAR FILTRATION RATE > 60.0 (>45); GLUCOSE, FASTING 111 MG/DL (70-100); POTASSIUM SERUM 2.7 MEQ/L (3.5-5.1); SODIUM LEVEL 135 MEQ/L (136-145)
[2019-04-24 17:11] LABS: ANISOCYTOSIS 1+; ATYPICAL LYMPH 1 % (0-5); HYPOCHROMASIA 1+; LYMPHOCYTES 3 % (16-44); METAMYELOCYTES 1 % (0-0); MONOCYTES 4 % (0-5); PLATELET ESTIMATE NORMAL (NORMAL)
[2019-04-24 17:45] LABS: NEUTROPHILS 89 % (28-66)
== END ==
LOC: M WUC 14:09
PROVIDERS: ATTEND Nurse Practitioner Family
DX: J20.9 Acute bronchitis, unspecified (principal); J98.11 Atelectasis

== ENCOUNTER → 2021-08-16 | Outpatient (REF) | payer MEDICARE, BC ==
[~2021-08-16] MED LIST changes: -BUPR300T34 PO; +BUPR300T92 PO; -IBUP200T45 PO; +IBUP200T46 PO; +NIFE1TAB52 PO; -NIFE30TA7 PO
[2021-08-16 17:20] LABS: APPEARANCE, URINE CLOUDY (CLEAR); BACTERIA, URINE AUTO NEGATIVE (NEGATIVE); BILIRUBIN, URINE AUTO NEGATIVE (NEGATIVE); BLOOD, URINE BLOOD NEGATIVE (NEGATIVE); CALCIUM OXALATE CRYSTALS SMALL; COLOR, URINE YELLOW (YELLOW); GLUCOSE, URINE (UA) AUTO NEGATIVE (NEGATIVE); KETONE, URINE AUTO NEGATIVE (NEGATIVE); LEUKOCYTE ESTERASE, URINE AUTO 1+ (NEGATIVE); MUCUS, URINE SMALL (NEGATIVE); NITRITE, URINE AUTO NEGATIVE (NEGATIVE); PROTEIN, URINE AUTO NEGATIVE (NEGATIVE); RBC, URINE AUTO 2 /HPF (0-3); SPECIFIC GRAVITY URINE AUTO 1.019 (1.002-1.035); SQUAMOUS EPITHELIAL CELL UR AU 16 /HPF (0-6); UROBILINOGEN, URINE AUTO 0.2 mg/dL (0.0-2.0); WBC, URINE AUTO 7 /HPF (0-3)
== END ==
LOC: M SMT 16:42
PROVIDERS: ATTEND Nurse Practitioner Women's Health
DX: N39.41 Urge incontinence (principal)

== ENCOUNTER → 2023-08-08 | Outpatient (CLI) | payer MEDICARE ==
[2023-08-08 12:31] LABS: HEMATOCRIT 40.5 % (36.0-47.0); HEMOGLOBIN 12.9 g/dl (12.0-15.5); MEAN CORPUSCULAR HEMOGLOBIN 28.4 pg (27.0-33.0); MEAN CORPUSCULAR HGB CONC 31.9 g/dl (32.0-36.5); MEAN CORPUSCULAR VOLUME 89.2 fl (80.0-96.0); PLATELET COUNT, AUTOMATED 366 10^3/uL (150-450); RED BLOOD COUNT 4.54 10^6/uL (4.00-5.40); WHITE BLOOD COUNT 6.9 10^3/uL (4.0-10.0)
[2023-08-08 12:38] LABS: ALBUMIN 3.7 G/DL (3.2-5.2); ALKALINE PHOSPHATASE 91 U/L (46-116); ALT/SGPT 21 U/L (7.0-40); AST/SGOT 21 U/L (<34); BILIRUBIN,TOTAL 0.5 MG/DL (0.3-1.2); BLOOD UREA NITROGEN 20 MG/DL (9-23); CALCIUM LEVEL 9.7 MG/DL (8.3-10.6); CARBON DIOXIDE LEVEL 32 MMOL/L (20-31); CHLORIDE LEVEL 105 MMOL/L (98-107); CHOLESTEROL LEVEL 162 MG/DL (<200); CHOLESTEROL RISK RATIO 2.69 (<5); CREATININE FOR GFR 0.87 MG/DL (0.55-1.30); GLOMERULAR FILTRATION RATE > 60.0 (>39); GLUCOSE, FASTING 95 MG/DL (74-106); HDL CHOLESTEROL 60.1 MG/DL (>40); LDL CHOLESTEROL 78.9 MG/DL (<100); NON-HDL-C 101.9 MG/DL; POTASSIUM SERUM 4.3 MMOL/L (3.5-5.1); SODIUM LEVEL 143 MMOL/L (136-145); TOTAL PROTEIN 6.2 G/DL (5.7-8.2); TRIGLYCERIDES LEVEL 115 MG/DL (<150)
== END ==
LOC: M WUC 10:13
PROVIDERS: ATTEND Registered Nurse
DX: E55.9 Vitamin D deficiency, unspecified (principal); E78.00 Pure hypercholesterolemia, unspecified; I10 Essential (primary) hypertension

== ENCOUNTER → 2024-08-13 | Outpatient (CLI) | payer MEDICARE ==
[~2024-08-13] MED LIST changes: +BUPR-597 PO; -BUPR300T92 PO
[2024-08-13 19:27] LABS: HEMATOCRIT 42.7 % (36.0-47.0); HEMOGLOBIN 13.2 g/dl (12.0-15.5); MEAN CORPUSCULAR HEMOGLOBIN 28.6 pg (27.0-33.0); MEAN CORPUSCULAR HGB CONC 30.9 g/dl (32.0-36.5); MEAN CORPUSCULAR VOLUME 92.6 fl (80.0-96.0); PLATELET COUNT, AUTOMATED 462 10^3/uL (150-450); RED BLOOD COUNT 4.61 10^6/uL (4.00-5.40); WHITE BLOOD COUNT 6.3 10^3/uL (4.0-10.0)
[2024-08-13 19:50] LABS: ALBUMIN 3.8 G/DL (3.2-5.2); BILIRUBIN,TOTAL 0.3 MG/DL (0.3-1.2); CALCIUM LEVEL 9.8 MG/DL (8.3-10.6); CHOLESTEROL RISK RATIO 2.62 (<5); CREATININE FOR GFR 0.85 MG/DL (0.55-1.30); GLOMERULAR FILTRATION RATE 72.3 (>39); HDL CHOLESTEROL 65.9 MG/DL (>40); LDL CHOLESTEROL 79.1 MG/DL (<100); NON-HDL-C 107.1 MG/DL; POTASSIUM SERUM 4.1 MMOL/L (3.5-5.1); TOTAL PROTEIN 6.9 G/DL (5.7-8.2)
== END ==
LOC: M WUC 12:21
PROVIDERS: ATTEND Registered Nurse
DX: E55.9 Vitamin D deficiency, unspecified (principal); E78.00 Pure hypercholesterolemia, unspecified; I10 Essential (primary) hypertension

== ENCOUNTER → 2024-08-26 | Outpatient (CLI) | payer MEDICARE ==
[~2024-08-26] MED LIST changes: -BUPR-597 PO; +BUPR-766 PO
[2024-08-26 14:35] LABS: PLATELET COUNT, AUTOMATED 411 10^3/uL (150-450)
== END ==
LOC: M WUC 12:26
PROVIDERS: ATTEND Registered Nurse
DX: D75.839 Thrombocytosis, unspecified (principal); Z79.899 Other long term (current) drug therapy